=== PATIENT | female | born 1955 | race African-American/Black ===

== ENCOUNTER 2018-11-03 21:41 | Emergency (ER) | payer OTHER ==
[~2018-11-03] VITALS: Ht 149.9 cm; Wt 76.7 kg
[2018-11-03 21:45] VITALS: BP 133/86
== END 2018-11-03 22:33 | disposition home or self-care (01) ==
LOC: ER 21:41
DX: M54.9 Dorsalgia, unspecified (principal); I10 Essential (primary) hypertension; Z88.8 Allergy status to other drugs, medicaments and biological substances; V89.2XXA Person injured in unspecified motor-vehicle accident, traffic, initial encounter; Y92.89 Other specified places as the place of occurrence of the external cause; Y93.89 Activity, other specified; Y99.8 Other external cause status